=== PATIENT | female | born 1940 | race Caucasian/White ===

== ENCOUNTER → 2019-10-10 | Outpatient (CLI) | payer MEDICARE ==
[~2019-10-10] MED LIST: IOHEXOL-350 50ML VIAL IV ONE
== END | disposition home or self-care (01) ==
LOC: CANPRECLI → RAH 10:51
PROVIDERS: ATTEND Family Medicine
DX: R91.8 Other nonspecific abnormal finding of lung field (principal); R91.1 Solitary pulmonary nodule; M47.816 Spondylosis without myelopathy or radiculopathy, lumbar region; M43.8X4 Other specified deforming dorsopathies, thoracic region; Z90.49 Acquired absence of other specified parts of digestive tract
CPT/HCPCS: 71270; Q9967

== ENCOUNTER → 2020-06-07 | Outpatient (CLI) | payer MEDICARE | END | disposition home or self-care (01) | LOC: RAH 14:27 | PROVIDERS: ATTEND Family Medicine | DX: M47.815 Spondylosis without myelopathy or radiculopathy, thoracolumbar region (principal); R91.8 Other nonspecific abnormal finding of lung field; J44.9 Chronic obstructive pulmonary disease, unspecified | CPT/HCPCS: 71270; Q9967 ==